=== PATIENT | female | born 1970 | race Caucasian/White ===

== ENCOUNTER 2020-06-30 06:42 | Outpatient (NON) | payer BC, OTHER, SELFPAY ==
[2020-07-03 01:47] LABS: SARS-CoV-2 RNA PCR Negative
== END 2020-06-30 06:43 ==
PROVIDERS: PCP Internal Medicine; Visit Provider Internal Medicine
DX: Z20.828 Contact with and (suspected) exposure to other viral communicable diseases (principal)
CPT/HCPCS: 87635; C9803; U0003

== ENCOUNTER 2022-12-22 00:52 | Day surgery (SDC) | payer OTHER, SELFPAY ==
[2022-12-07 13:34] VITALS: BMI 25.7
--- NOTE | 2022-12-20 15:25 | PM.HPGS ---
History of Present Illness History of Present Illness Consent: Risks, benefits, and alternatives have been discussed and questions answered. Patient agrees to proceed with procedure. Chief complaint: family hx colon ca Narrative: Pablo Pereira is a 52 year old female referred for colon cancer screening. She has a family history of colon cancer. Her mother had colon cancer . Review of Systems Review of Systems: All systems reviewed & are unremarkable except as noted in HPI and below PMFSH Family History Family History Father Cerebrovascular accident Family history of diabetes mellitus in first degree relative Hypertension Sibling Hypertension Mother Carcinoma of colon Family history of lung cancer Social History Social History Smoking status: Never smoker Alcohol intake: current Alcohol use details: social Substance use: never Meds Home Medications and Allergies Home Medications Medication Instructions Recorded Confirmed Type lactobacillus combination no.4 3 3,000 mmu cells PO DAILY 09/23/19 12/07/22 History billion cell capsule (Probiotic) multivitamin 1 tablet PO DAILY 09/23/19 12/07/22 History spironolactone 100 mg tablet 100 mg PO DAILY 12/07/22 12/07/22 History Allergies Allergy/AdvReac Type Severity Reaction Status Date / Time sulfamethoxazole Allergy Intermediate Vomiting Verified 12/22/22 07:28 [From Bactrim] trimethoprim [From Bactrim] Allergy Intermediate Vomiting Verified 12/22/22 07:28 Exam Resp: Auscultation: clear to auscultation bilaterally Cardio: Rate: regular rate Rhythm: regular rhythm GI: GI Palp: Yes Soft to palpation and No Tenderness to palpation present (GI) Assessment and Plan Assessment and plan (1) Colon cancer screening: Code(s): Z12.11 - Encounter for screening for malignant neoplasm of colon Status: Acute Assessment and Plan: Colonoscopy with possible biopsy or polypectomy or cautery or injection of substances.
[2022-12-22 07:28] VITALS: BP 121/86; PULSE 98; RESP 20; TEMP 36.3; O2SAT 100
[2022-12-22] MEDS: LACTATED RINGERS 1,000 ML 150 ML IV CONT (07:39)
[2022-12-22 08:39] VITALS: BP 99/62; PULSE 95; RESP 18; O2SAT 100
[2022-12-22 08:49] VITALS: BP 116/68; PULSE 89; RESP 13; O2SAT 98
[2022-12-22 08:59] VITALS: BP 123/67; PULSE 81; RESP 13; O2SAT 99
== END 2022-12-22 09:15 | disposition home or self-care (01) ==
PROVIDERS: Visit Provider Internal Medicine Gastroenterology
PROC: 0DJD8ZZ Inspection of Lower Intestinal Tract, Via Natural or Artificial Opening Endoscopic (ICD-10-PCS; CPT 45378; principal; 2022-12-22 08:30)
DX: Z12.11 Encounter for screening for malignant neoplasm of colon (principal); Z80.0 Family history of malignant neoplasm of digestive organs
CPT/HCPCS: 45378; J2704; J7120

== ENCOUNTER 2024-03-23 19:59 | Emergency (ER) | payer BC, SELFPAY ==
--- NOTE | ~2024-03-23 | XR_ITS ---
XR shoulder LT min 2V DATE: 03/23/2024 20:44 INDICATION: Shoulder pain TECHNIQUE: 4 views COMPARISON: 11/01/2017 left shoulder FINDINGS: No fracture or dislocation, periosteal reaction or bone destruction or abnormal soft tissue calcification of the left shoulder. IMPRESSION: Negative Reviewed, dictated and finalized at location J. IMPRESSION: Negative
--- NOTE | ~2024-03-23 | XR_ITS ---
XR chest 1V portable DATE: 03/23/2024 21:26 INDICATION: Left chest and back pain TECHNIQUE: Portable upright AP chest on 03/23/2024 at 2121 hours COMPARISON: None FINDINGS: Normal heart size. No hilar or mediastinal enlargement. No pulmonary infiltrate or consolid ation, pleural effusion or pulmonary vascular congestion or pneumothorax is detected. IMPRESSION: No active cardiopulmonary disease Reviewed, dictated and finalized at location J.
[2024-03-23 20:00] VITALS: BP 148/82; PULSE 93; RESP 15; TEMP 36.4; O2SAT 100
--- NOTE | 2024-03-23 20:51 | ECG_ITS ---
Test Date: 2024-03-23 21:09:41 Measurements Intervals [place] Rate: 78 P: 66 NM: 165 QRS: 61 QRSD: 86 T: 41 QT: 335 QTc: 384 Interpretive Statements SINUS RHYTHM SEPTAL MYOCARDIAL INFARCTION , OF INDETERMINATE AGE [40+ ms Q WAVE IN V1/V2] ABNORMAL ECG No previous ECG available for comparison Electronically Signed On 03-24-2024 10:58:00 CDT by Tucker Jaimes M.D.
--- NOTE | 2024-03-23 21:15 | PC.NURSE ---
Pt stated I dont feel like I need any pain medications right now. I will take the fluids if the doctor feels like I need them.
[2024-03-23] MEDS: SODIUM CHLORIDE 0.9% IV 2,000 ML 999 ML IV CONT (21:18)
[2024-03-23 21:28] LABS: Glucose Point of Care 86 mg/dl (65-105)
[2024-03-23 21:30] LABS: Basophils Percent Auto 0.5 % (0.2-1.2); Eosinophils Absolute Auto 0.3 K/mm3 (0-0.3); Eosinophils Percent Auto 3.2 % (0-4.4); Hematocrit 37.7 % (37.0-47.0); Hemoglobin 12.6 g/dL (12.0-15.0); Immature Granulocyte Absolute 0.02 K/mm3 (0.00-0.031); Immature Granulocyte Percent A 0.2 % (0-0.5); Lymphocytes Absolute Auto 2.32 K/mm3 (0.9-3.2); Lymphocytes Percent Auto 27.1 % (18.3-44.2); Mean Corpuscular HGB Conc 33.4 g/dl (32-36); Mean Corpuscular Hemoglobin 29.5 pg (26-34); Mean Corpuscular Volume 88.3 fl (80-100); Mean Platelet Volume 9.9 fl (7.4-10.4); Monocytes Absolute Auto 0.7 K/mm3 (0.1-0.6); Monocytes Percent Auto 8.5 % (2.6-8.5); Neutrophils Absolute Auto 5.2 K/mm3 (1.3-6.7); Neutrophils Percent Auto 60.5 % (45.5-73.1); Platelet Count Result 246 k/mm3 (150-375); Red Blood Count 4.27 M/mm3 (4.2-5.4); White Blood Count 8.6 K/mm3 (4.5-10.0)
[2024-03-23 21:40] LABS: Alanine Aminotransferase 13 U/L (6-35); Albumin Level 4.6 g/dL (3.5-5.1); Alkaline Phosphatase 36 U/L (38-126); Anion Gap 10 mmol/L (4-12); Aspartate Amino Transferase 37 U/L (14-36); Bilirubin,Total 0.4 mg/dL (0.2-1.3); Blood Urea Nitrogen 29 mg/dL (7-17); Calcium 9.5 mg/dL (8.4-10.2); Carbon Dioxide 29 mmol/L (22-30); Chloride 98 mmol/L (98-107); Estimated CRCL calculation 61 ml/min; Estimated Glomerular Filt Rate > 60; Glucose 94 mg/dL (65-110); Potassium 3.6 mmol/L (3.4-5.0); Sodium 137 mmol/L (137-145)
[2024-03-23 21:46] LABS: Partial Thromboplastin Time 27.4 Seconds (22.3-36.8)
[2024-03-23 21:47] LABS: INR 1.1; Prothrombin Time 14.4 Seconds (11.1-14.7)
[2024-03-23 21:52] LABS: NT Pro B Type Natriuretic Pept 50 pg/mL (19.9-100); Troponin I < 0.012 ng/mL (0.000-0.034)
[2024-03-23 22:15] LABS: D Dimer < 0.27 ug/mL (<0.48)
--- NOTE | 2024-03-23 22:43 | ED.GENADULT ---
HPI - General Adult General Chief complaint: Back Pain/Injury Stated complaint: back pain Time Seen by Provider: 03/23/24 20:13 History of Present Illness HPI narrative: This is a 49 old female presenting ED with left-sided back pain radiates down arm. The pain is a sharp pain moderate intensity. Consent goes and lasts for several seconds at a time. She has never pain like this before there are no exacerbating factors. Is not reproducible with movement of her arm. Not associated the thumbs exertion diaphoresis or vomiting. She does not have any swelling of her lower extremities. She started estrogen replacement therapy yesterday. She is not taking anything for pain control. Related Data Home Medications Medication Instructions Recorded Confirmed lactobacillus combination no.4 3 3,000 mmu cells PO DAILY 09/23/19 12/07/22 billion cell capsule (Probiotic) multivitamin 1 tablet PO DAILY 09/23/19 12/07/22 spironolactone 100 mg tablet 100 mg PO DAILY 12/07/22 12/07/22 Allergies Allergy/AdvReac Type Severity Reaction Status Date / Time sulfamethoxazole Allergy Intermediate Vomiting Verified 03/23/24 20:31 [From Bactrim] trimethoprim [From Bactrim] Allergy Intermediate Vomiting Verified 03/23/24 20:31 PMF Family History Family History Father Cerebrovascular accident Family history of diabetes mellitus in first degree relative Hypertension Sibling Hypertension Mother Carcinoma of colon Family history of lung cancer Social History Social History Smoking status: Never smoker Alcohol intake: current Alcohol use details: social Substance use: never Exam Narrative: APPEARANCE: No apparent distress. Head: atraumatic. EYES: EOMI, NOSE: Atraumatic NECK: Trachea midline RESPIRATORY: No increased rate of breathing clear to auscultation CARDIOVASCULAR: RRR, peripheral ABDOMINAL: Non-distended soft nontender MUSCULOSKELETAl: No obvious deformities no tenderness palpation over the patient's back, no overlying skin changes NEURO: Alert. Moving 4/4 extremities SKIN:: Warm, dry. Normal color PSYCHIATRIC: Normal affect Course Vital Signs Vital signs: Vital Signs Temperature 97.6 F 03/23/24 20:00 Pulse Rate 93 03/23/24 20:00 Respiratory Rate 15 03/23/24 20:00 Blood Pressure 148/82 H 03/23/24 20:00 Pulse Oximetry 100 03/23/24 20:00 Oxygen Delivery Room Air 03/23/24 20:00 Temperature 97.6 F 03/23/24 20:00 Pulse Rate 93 03/23/24 20:00 Respiratory Rate 15 03/23/24 20:00 Blood Pressure 148/82 H 03/23/24 20:00 Pulse Oximetry 100 03/23/24 20:00 Oxygen Delivery Room Air 03/23/24 20:00 Medical Decision Making MDM Narrative Medical decision making narrative: -Course: 53-year-old female sharp pains in her left back. Workup including D-dimer troponin EKG and chest x-ray were negative. Patient declined medication because the pain had resolved while she was in the emergency department on re-evaluation patient is resting comfortably with no symptoms. She will be discharged follow-up her primary care physician. Return precautions. -DDX includes but is not limited to: Pleurisy, muscle spasm, pneumonia, PE, ACS, pneumothorax -Co-morbidities complicating care: Estrogen replacement therapy -Independent interpretation of studies: Labs reviewed Imaging reviewed Independent EKG interpretation: Rhythm [sinus], Rate [78], Dixon -[normal], CA -[normal], QRS [narrow], QTC [normal], T waves -[negative for concerning inversions], ST Segments - [Negative for concerning elevations] Final interpretations: [Normal Sinus Rhythm] -Shared decision making / Disposition: Discharged Vital Signs Vital Signs: Vital Signs Temperature 97.6 F 03/23/24 20:00 Pulse Rate 93 03/23/24 20:00 Respiratory Rate 15 03/23/24 20:00 Blood Pressure 148/82 H 03/23
[2024-03-23 23:00] VITALS: BP 130/75; PULSE 79; RESP 18; O2SAT 100
== END 2024-03-23 23:05 | disposition home or self-care (01) ==
PROVIDERS: Emergency Provider Emergency Medicine
DX: M54.9 Dorsalgia, unspecified (principal); R94.31 Abnormal electrocardiogram [ECG] [EKG]; Z79.890 Hormone replacement therapy
CPT/HCPCS: 36415; 71045; 73030; 80053; 82948; 83880; 84484; 85025; 85380; 85610; 85730; 93005; 96360; 96361; 99284; J7030

== ENCOUNTER 2024-06-05 01:08 | Day surgery (SDC) | payer BC, SELFPAY ==
[2024-05-22 13:49] VITALS: BMI 25.7
[2024-06-05 06:19] VITALS: BP 129/78; PULSE 92; RESP 16; TEMP 36.3; O2SAT 99; BMI 27.5
[2024-06-05] MEDS: LACTATED RINGERS 1,000 ML 150 ML IV CONT (06:30)
--- NOTE | 2024-06-05 07:17 | P.PNAN_ITS ---
Anes - Initial Pre Proc Eval Procedure: Operation Date: 06/05/24 07:30 Proposed Procedures p Esophagogastroduodenoscopy - Jesu Jewell MD Date/Time: 06/05/24 07:17 Surgeon: Jesu Jewell MD Pre Op Diagnosis: Epigastric pain Patient Data Age: 54 Gender: F Height: 1.63 m Weight: 72.7 kg Last Vital Signs Temp 36.3 C L 06/05/24 06:19 Pulse 92 06/05/24 06:19 Resp 16 06/05/24 06:19 BP 129/78 06/05/24 06:19 Pulse Ox 99 06/05/24 06:19 O2 Del Method Room Air 06/05/24 06:19 Allergies Allergy/AdvReac Type Severity Reaction Status Date / Time sulfamethoxazole Allergy Intermediate Vomiting Verified 06/05/24 06:17 [From Bactrim] trimethoprim [From Bactrim] Allergy Intermediate Vomiting Verified 06/05/24 06:17 Home Medications Medication Instructions Recorded Confirmed Type lactobacillus combination no.4 3 3,000 mmu cells PO DAILY 09/23/19 06/05/24 History billion cell capsule (Probiotic) multivitamin 1 tablet PO DAILY 09/23/19 06/05/24 History spironolactone 100 mg tablet 50 mg PO DAILY 12/07/22 06/05/24 History acetaminophen 500 mg tablet 1,000 mg PO TID PRN levon 7 days #42 03/23/24 06/05/24 Rx tabs ibuprofen 800 mg tablet 800 mg PO TID PRN pain 7 days #21 03/23/24 06/05/24 Rx tabs estradiol 0.05 mg/24 hr semiweekly 1 patch transdermal 2XW 03/25/24 06/05/24 History transdermal patch saw palmetto 160 mg capsule 160 mg PO BID 03/25/24 06/05/24 History omeprazole 20 mg capsule,delayed 20 mg PO DAILY 3 months #90 caps 05/12/24 06/05/24 Rx release progesterone micronized 200 mg 200 mg PO DAILY 05/22/24 06/05/24 History capsule Patient hx anesthesia problems: none Family hx anesthesia problems: none Results Review: All pre-operative results and documents have been reviewed as part of the pre- operative evaluation. [facility] Past Medical History Medical History Chronic cough Epigastric pain Family History Family History Father Cerebrovascular accident Family history of diabetes mellitus in first degree relative Hypertension Sibling Hypertension Mother Carcinoma of colon Family history of lung cancer Social History Social History Smoking status: Never smoker Alcohol intake: never Alcohol use details: social Substance use: never Substance use type: does not use Living arrangements: with family Spiritual care concerns: No Anes - Eval Final PreProcedure Day of Procedure 06/05/24 07:17 Patient weight: overweight Heart: regular rate and rhythm Lungs: clear to auscultation Airway: Mallampati scale class 1 Neurological: alert and oriented Last oral intake: >/= 8 hours ASA classification: II Emergent: no Anesthetic plan: proceed Anesthesia type and monitoring: general GIVS Results Review: All pre-operative results and documents have been reviewed as part of the pre- operative evaluation. Informed Consent: The patient's anesthetic plan and its attendant risks and benefits were discussed with the patient/family/POA. Questions were solicited and answers provided to the satisfaction of the patient/family/POA.
--- NOTE | 2024-06-05 07:24 | PM.HPGS ---
History of Present Illness History of Present Illness Consent: Risks, benefits, and alternatives have been discussed and questions answered. Patient agrees to proceed with procedure. Chief complaint: Epigastric pain Narrative: Pablo Pereira is a 54 year old female with luq pain and cough, trial of omeprazole did not help, never had egd Review of Systems Review of Systems: All systems reviewed & are unremarkable except as noted in HPI and below PMFSH Past Medical History Medical History (Updated 06/05/24 @ 07:25 by Jesu Jewell MD) Chronic cough Chronic LUQ pain Epigastric pain Family History Family History Father Cerebrovascular accident Family history of diabetes mellitus in first degree relative Hypertension Sibling Hypertension Mother Carcinoma of colon Family history of lung cancer Social History Social History Smoking status: Never smoker Alcohol intake: never Alcohol use details: social Substance use: never Substance use type: does not use Living arrangements: with family Spiritual care concerns: No Meds Home Medications and Allergies Home Medications Medication Instructions Recorded Confirmed Type lactobacillus combination no.4 3 3,000 mmu cells PO DAILY 09/23/19 06/05/24 History billion cell capsule (Probiotic) multivitamin 1 tablet PO DAILY 09/23/19 06/05/24 History spironolactone 100 mg tablet 50 mg PO DAILY 12/07/22 06/05/24 History acetaminophen 500 mg tablet 1,000 mg PO TID PRN levon 7 days #42 03/23/24 06/05/24 Rx tabs ibuprofen 800 mg tablet 800 mg PO TID PRN pain 7 days #21 03/23/24 06/05/24 Rx tabs estradiol 0.05 mg/24 hr semiweekly 1 patch transdermal 2XW 03/25/24 06/05/24 History transdermal patch saw palmetto 160 mg capsule 160 mg PO BID 03/25/24 06/05/24 History omeprazole 20 mg capsule,delayed 20 mg PO DAILY 3 months #90 caps 05/12/24 06/05/24 Rx release progesterone micronized 200 mg 200 mg PO DAILY 05/22/24 06/05/24 History capsule Allergies Allergy/AdvReac Type Severity Reaction Status Date / Time sulfamethoxazole Allergy Intermediate Vomiting Verified 06/05/24 06:17 [From Bactrim] trimethoprim [From Bactrim] Allergy Intermediate Vomiting Verified 06/05/24 06:17 Vital Signs Vital Signs - 24 hr 06/05/24 06:19 Temperature 97.3 F L Pulse Rate 92 Respiratory Rate 16 Blood Pressure 129/78 Pulse Oximetry 99 Oxygen Delivery Room Air Exam Const: General: comfortable and no acute distress HENMT: Face/Nose/Sinus: Normal nares present Eyes: General: appearance normal, both eyes and all related structures Neck: Neck: no JVD Resp: Auscultation: clear to auscultation bilaterally Cardio: Rate: regular rate Rhythm: regular rhythm GI: Inspection: non-distended GI Palp: Yes Soft to palpation Skin: General skin exam: normal color Neuro: General: gait normal Speech: normal speech Extrem: General: normal to inspection Psych: Mental Status: mental status grossly normal Assessment and Plan Assessment and plan (1) Chronic LUQ pain: Code(s): R10.12 - Left upper quadrant pain; G89.29 - Other chronic pain Status: Acute Assessment and Plan: egd with bx
[2024-06-05 07:36] VITALS: BP 105/61; PULSE 77; RESP 13; O2SAT 100
[2024-06-05 07:46] VITALS: BP 104/65; BP 124/78; PULSE 79; PULSE 82; RESP 17; RESP 18; O2SAT 100
== END 2024-06-05 08:01 | disposition home or self-care (01) ==
PROVIDERS: Referring Provider Nurse Practitioner Family; Visit Provider Internal Medicine Gastroenterology
PROC: 0DJ08ZZ Inspection of Upper Intestinal Tract, Via Natural or Artificial Opening Endoscopic (ICD-10-PCS; CPT 43235; principal; 2024-06-05 07:30)
DX: K29.50 Unspecified chronic gastritis without bleeding (principal); G89.29 Other chronic pain; R05.3 Chronic cough; Z79.1 Long term (current) use of non-steroidal anti-inflammatories (NSAID); Z80.0 Family history of malignant neoplasm of digestive organs; Z80.1 Family history of malignant neoplasm of trachea, bronchus and lung; Z82.49 Family history of ischemic heart disease and other diseases of the circulatory system
CPT/HCPCS: 43239; 88305; J2704; J7120